=== PATIENT | male | born 1950 | race Caucasian/White ===

== ENCOUNTER → 2017-09-17 | Outpatient (CLI) | payer MEDICARE ==
[~2017-09-17] MED LIST: AMARYL4 MG PO; ASPIR 8181 M1 PO; ASPIR 8181 MG PO; COREG25 MG PO; LEVEMIR FL100 UNIT/2 SQ; LISINOPRIL10 MG PO; METFORMIN HCL500 MG PO; NEPHROCAPS SOFT1 CAP PO; NOVOLOG100 UNIT/1 INJECTION; PERCOCET PO; SIMVASTATIN40 MG PO; SODIUM BICARBO650 M3; TOUJEO SOL300 UNIT/1 SUBQ; VITAMIN B 12; VITAMIN D 5050000 I1
[2017-09-17 09:45] VITALS: BP 155/72
--- NOTE | 2017-09-17 09:58 | NUR ---
ARRIVED AMBULATORY. MADE SELF COMFORTABLE IN RECLINER. LABS DRAWN AND RESULTS EVALUATED. HGB NOTED AT 11.5 PER STANDING ORDER OF TITRATION TODAY'S DOSE IS HELD AND NOT GIVEN. PT UPDATED, VOICED UNDERSTANDING AND AGREED. DENIES QUESTIONS OR NEEDS AT DISCHAARGE.
== END ==
LOC: M.INFUS 01:44
DX: N18.4 Chronic kidney disease, stage 4 (severe) (principal); D63.1 Anemia in chronic kidney disease

== ENCOUNTER → 2017-10-15 | Outpatient (CLI) | payer OTHER ==
[2017-10-15 08:30] VITALS: BP 112/54
--- NOTE | 2017-10-15 10:23 | NUR ---
ARRIVED AMBULATORY. MADE SELF COMFORTABLE IN RECLINER. MONTHLY LABS REVIEWED AND PER STANDING ORDER DOSE OF PROCRIT TO STAY THE SAME FOR THIS INJECTION. INJECTION COMPLETED AND TOLERATED WELL. DENIES ADVERSE REACTION TO MULTIPLE PRIOR INJECTIONS OF SAME. DENIES QUESTIONS OR NEEDS AT DISCHARGE.
== END ==
LOC: M.INFUS 08:12
DX: N18.4 Chronic kidney disease, stage 4 (severe) (principal); D63.1 Anemia in chronic kidney disease

== ENCOUNTER → 2017-10-29 | Outpatient (CLI) | payer OTHER ==
[2017-10-29 11:16] LABS: HEMATOCRIT 34.1 % (42.0-52.0); HEMOGLOBIN 11.6 gm/dL (14.0-18.0)
--- NOTE | 2017-10-29 12:20 | NUR ---
ARRIVED AMBULATORY WITH SON, MADE SELF COMFORTABLE. LABS DRAWN PER ORDER. LAB RESULTS EVALUATED AND PT DOES NOT MEET CRITERIA FOR PROCRIT INJECTION TODAY BASED ON STANDING ORDER. HGB NOTED AT 11.6. PT UPDATED. VOCIED UNDERSTANDING AND AGREED. DENEIS QUESTIONS OR NEEDS AT DISCHARGE.
== END ==
LOC: M.INFUS 04:46
PROVIDERS: Internal Medicine Nephrology
DX: N18.4 Chronic kidney disease, stage 4 (severe) (principal); D63.1 Anemia in chronic kidney disease

== ENCOUNTER → 2017-11-12 | Outpatient (CLI) | payer OTHER ==
--- NOTE | 2017-11-12 10:00 | NUR ---
ARRIVED AMBULATROY. MADE SELF COMFORTABLE IN RECLINER. LABS DRAWN PER ORDER. HGB NOTED TO BE 12.2 PER STANDNG ORDER NO PROCRIT TO BE GIVEN TOADY. PT UPDATED. VOICED UNDERSTANDING AND AGREED. DENIES NEEDS AT DISCHARGE.
== END ==
LOC: M.INFUS 05:56
DX: N18.4 Chronic kidney disease, stage 4 (severe) (principal); D63.1 Anemia in chronic kidney disease

== ENCOUNTER → 2017-11-26 | Outpatient (CLI) | payer OTHER ==
--- NOTE | 2017-11-26 15:33 | NUR ---
ARRIVED AMBULATORY. HGB DRAWN AND RESULTS NOTED TO BE TO HIGH FOR INJECTION OF PROCRIT PER STANDING ORDER. PT UPDATED. VOICED UNDERSTANDING AND AGREED. DENIES NEEDS AT DISCHARGE.
== END ==
LOC: M.INFUS 05:41
DX: N18.4 Chronic kidney disease, stage 4 (severe) (principal); D63.1 Anemia in chronic kidney disease

== ENCOUNTER → 2017-12-13 | Outpatient (CLI) | payer OTHER ==
--- NOTE | 2017-12-13 09:27 | NUR ---
PT ARRIVED UNEXPECTEDLY AT 0855 THIS AM. HE HAD FORGOT ABOUT HIS WEDNESDAY APPT. GOT HIM REGISTERED AND HGB DRAWN. IT CAME BACK AT 11.0, WHICH WAS BORDERLINE FOR GETTING A SHOT OF PROCRIT. LEFT THE CHOICE UP TO THE PT. AND HE OPTED FOR NO SHOT. PT DC'ED HOME AT THIS TIME.
== END ==
LOC: M.INFUS 09:00
DX: N18.4 Chronic kidney disease, stage 4 (severe) (principal); D63.1 Anemia in chronic kidney disease

== ENCOUNTER → 2017-12-24 | Outpatient (CLI) | payer OTHER ==
--- NOTE | 2017-12-24 10:15 | NUR ---
ARRIVED AMBULATORY. MADE SELF COMFORTABLE IN RECLINER. LABS DRAWN AND RESULTS EVALUATED. PER STANDING ORDER NO INJECTION NEEDED AT THIS TIME. PT UPDATED AND AGREED. DENIES QUESTIONS OR NEEDS AT DISHCARGE.
== END ==
LOC: M.INFUS 01:33
DX: N18.4 Chronic kidney disease, stage 4 (severe) (principal); D63.1 Anemia in chronic kidney disease

== ENCOUNTER → 2018-01-07 | Outpatient (CLI) | payer OTHER ==
[2018-01-07 09:25] LABS: ABSOLUTE BASOPHILS 0.1 thou/uL (0.0-0.2); ABSOLUTE EOSINOPHILS 0.3 thou/uL (0.0-0.7); ABSOLUTE LYMPHOCYTES 2.1 thou/uL (0.8-5.3); ABSOLUTE MONOCYTES 0.4 thou/uL (0.0-1.2); ABSOLUTE NEUTROPHILS 4.8 thou/uL (1.6-8.1); EOSINOPHILS 4.2 %; HEMOGLOBIN 10.8 gm/dL (14.0-18.0); MCH 31.6 pg (26.0-34.0); MCHC 34.8 g/dL (28.0-37.0); MONOCYTES 5.6 %; NUCLEATED RBCS 0 /100WBC; PLATELET COUNT* 213 thou/uL (150-400); POLYS 62.2 %; RBC 3.41 mil/uL (4.50-6.00); RDW-CV 13.2 % (10.5-14.5); WBC 7.6 thou/uL (4.0-11.0)
[2018-01-07 09:42] LABS: ALBUMIN 3.3 g/dL (3.4-5.0); CALCIUM 8.5 mg/dL (8.5-10.1); CREATININE 3.1 mg/dL (0.6-1.3); PHOSPHORUS* 5.3 mg/dL (2.5-4.9); POTASSIUM 4.2 mmol/L (3.5-5.1)
[2018-01-07 09:44] VITALS: BP 121/52
--- NOTE | 2018-01-07 10:06 | NUR ---
Pt arrived at 0900 and ambulated to pre-op area for injection and lab draw. Reviewed meds and medical history and no changes or updates needed. Pt had lab drawn at 0915. Results at 0933 showed HGB at 10.8. INjection of Procrit 6,000units was done at 0952 in 1ml each back of arm SubQ. Pt tolerated injecions well but stated that medication does burn some with injection. Pt ambulated out for discharge at 1000.
[2018-01-07 18:06] LABS: eGFR IF AFRICAN AMERICAN 25 (>59)
[2018-01-07 22:11] LABS: PARATHYROID HORMONE 159 pg/mL (15-65)
== END ==
LOC: M.INFUS 02:07
PROVIDERS: Internal Medicine Nephrology
DX: N18.4 Chronic kidney disease, stage 4 (severe) (principal); D63.1 Anemia in chronic kidney disease

== ENCOUNTER 2018-01-11 14:43 | Emergency (ER) | payer OTHER ==
[~2018-01-11] VITALS: Ht 177.8 cm; Wt 88.7 kg
[~2018-01-11 14:43] MED LIST changes: -ASPIR 8181 MG PO; -NOVOLOG100 UNIT/1 INJECTION; -TOUJEO SOL300 UNIT/1 SUBQ
[2018-01-11 15:09] LABS: ABSOLUTE BASOPHILS 0.1 thou/uL (0.0-0.2); ABSOLUTE EOSINOPHILS 0.3 thou/uL (0.0-0.7); ABSOLUTE LYMPHOCYTES 2.1 thou/uL (0.8-5.3); ABSOLUTE MONOCYTES 0.4 thou/uL (0.0-1.2); ABSOLUTE NEUTROPHILS 5.1 thou/uL (1.6-8.1); BASOPHILS 1.1 %; EOSINOPHILS 4.1 %; HEMOGLOBIN 10.3 gm/dL (14.0-18.0); MCH 32.6 pg (26.0-34.0); MCHC 35.5 g/dL (28.0-37.0); MCV 91.9 fL (80.0-100.0); MONOCYTES 5.5 %; MPV 7.3 fl. (7.2-11.1); NUCLEATED RBCS 0 /100WBC; PLATELET COUNT* 217 thou/uL (150-400); POLYS 63.3 %; RBC 3.15 mil/uL (4.50-6.00); RDW-CV 13.4 % (10.5-14.5); WBC 8.1 thou/uL (4.0-11.0)
[2018-01-11 15:13] LABS: CALCIUM 8.1 mg/dL (8.5-10.1); CREATININE 3.4 mg/dL (0.6-1.3); POTASSIUM 4.1 mmol/L (3.5-5.1)
[2018-01-11 15:15] LABS: APTT 24.1 Seconds (25.0-31.3); INR 1.1; PROTIME 10.3 Seconds (9.20-11.50)
[2018-01-11 15:24] LABS: ALBUMIN 3.1 g/dL (3.4-5.0); TOTAL BILIRUBIN 0.3 mg/dL (<0.1-1.0); TOTAL PROTEIN 6.8 g/dL (6.4-8.2)
[2018-01-11 15:44] LABS: URINE BILIRUBIN NEGATIVE (Negative); URINE BLOOD TRACE (Negative); URINE CLARITY CLEAR; URINE COLOR YELLOW; URINE GLUCOSE-RANDOM 3+ (Negative); URINE KETONES NEGATIVE (Negative); URINE LEUKOCYTES-REFLEX NEGATIVE (Negative); URINE NITRITE-REFLEX NEGATIVE (Negative); URINE PROTEIN 2+ (Negative); URINE SPECIFIC GRAVITY 1.015 (1.005-1.030); URINE UROBILINOGEN 0.2 E.U./dl (0.2-1.0)
[2018-01-11 15:55] LABS: HYALINE CASTS 4-10 Moderate /LPF (None Seen)
[2018-01-11 15:56] LABS: BACTERIA-REFLEX None Seen /HPF (None Seen); CRYSTALS None Seen /LPF (None Seen); MUCUS None Seen strn/LPF (None Seen); SQUAMOUS NONE SEEN /LPF (0-3); URINE RBC 0-2 Rare /HPF (0-2); URINE WBC-REFLEX None Seen /HPF (0-5)
--- NOTE | 2018-01-11 16:29 | EKG ---
[place] [address] ELECTROCARDIOGRAM REPORT Name: BRITT GARVEY Room: [facility]#: [id number] Admission: 01/11/18 Attend Phys: Discharge: Date of : 54 Report #: [id number] THIS REPORT FOR: //name// [facility] ED Test Date: 2018-01-11 Test Time: 15:01:56 Pat Name: BRITT MARE Department: Room: Gender: Search Engine Marketing Manager: Talia [place] : 1950 Requested By: Vipin Huertas Order Number: [id number] MD: Marlon Taylor Measurements Intervals [place] Rate: 65 P: 50 [place]: 156 QRS: 68 QRSD: 126 T: 206 QT: 451 QTc: 469 Interpretive Statements Sinus rhythm Nonspecific intraventricular conduction delay Repol abnrm suggests ischemia, diffuse leads Compared to ECG 05/05/2013 11:01:28 Intraventricular conduction delay now present Fusion complex(es) no longer present Ventricular premature complex(es) no longer present Possible ischemia still present Electronically Signed On 01-11-2018 16:29:49 CDT by Marlon Taylor [email or web address] <ELECTRONICALLY SIGNED> By: Marlon Taylor MD, FAC 01/11/18 1629 1501 1501 Marlon Taylor MD, [facility] /EPI
[2018-01-11 17:30] VITALS: BP 176/65
[2018-02-11] MEDS ORDERED: ASPIR 8181 MG PO (16:27)
[2018-02-11] MEDS ORDERED: NOVOLOG100 UNIT/1 INJECTION (16:28)
[2018-02-14] MEDS ORDERED: TOUJEO SOL300 UNIT/1 SUBQ (12:00)
== END 2018-01-11 17:31 | disposition home or self-care (01) ==
LOC: M.ERS 14:43
PROVIDERS: Family Medicine
DX: E11.65 Type 2 diabetes mellitus with hyperglycemia (principal); E78.00 Pure hypercholesterolemia, unspecified; F17.210 Nicotine dependence, cigarettes, uncomplicated; Z86.73 Personal history of transient ischemic attack (TIA), and cerebral infarction without residual deficits; Z86.2 Personal history of diseases of the blood and blood-forming organs and certain disorders involving the immune mechanism; Z88.7 Allergy status to serum and vaccine

== ENCOUNTER → 2018-01-21 | Outpatient (CLI) | payer OTHER ==
[~2018-01-21] MED LIST changes: +ASPIR 8181 MG PO; +NOVOLOG100 UNIT/1 INJECTION; +TOUJEO SOL300 UNIT/1 SUBQ
--- NOTE | 2018-01-21 09:45 | NUR ---
ARRIVED AMBULATORY, MADE SLEF COMFORTABLE IN RECLINER. RESENT LABS REVIEWED. CRITERIA MET FOR PROCRIT INEJCTION TODAY. INJECTION COMPLETED AND TOLERATED WELL. DENIES NEEDS AT DISCHARGE.
== END ==
LOC: M.INFUS 01:31
DX: N18.4 Chronic kidney disease, stage 4 (severe) (principal); D63.1 Anemia in chronic kidney disease

== ENCOUNTER → 2018-02-04 | Outpatient (CLI) | payer OTHER ==
[2018-02-04 09:35] LABS: CHOLESTEROL 149 mg/dL (<200); HDL CHOLESTEROL 37 mg/dL (>40); LDL CHOLESTEROL 79 mg/dL (<100); TRIGLYCERIDE 168 mg/dL (<150); VLDL 34 mg/dL (<40)
[2018-02-04 09:36] LABS: SERUM ASSESSMENT Clear
== END ==
LOC: M.INFUS 01:35
PROVIDERS: Internal Medicine Nephrology
DX: N18.4 Chronic kidney disease, stage 4 (severe) (principal); D63.1 Anemia in chronic kidney disease

== ENCOUNTER → 2018-02-14 | Outpatient (CLI) | payer OTHER ==
[~2018-02-14] VITALS: Ht 177.8 cm; Wt 91.2 kg
[2018-02-14 11:10] LABS: HEMATOCRIT 33.3 % (42.0-52.0); HEMOGLOBIN 11.4 gm/dL (14.0-18.0); MCH 31.7 pg (26.0-34.0); MCHC 34.2 g/dL (28.0-37.0); MCV 92.6 fL (80.0-100.0); MPV 7.3 fl. (7.2-11.1); RBC 3.6 mil/uL (4.50-6.00); RDW-CV 13.5 % (10.5-14.5); WBC 9.9 thou/uL (4.0-11.0)
[2018-02-14 11:24] LABS: APTT 24.3 Seconds (25.0-31.3); INR 1.1; PROTIME 10.3 Seconds (9.20-11.50)
[2018-02-14 11:27] LABS: ANION GAP 16 mmol/L (7-16); BUN 63 mg/dL (7-18); CALCIUM 8.2 mg/dL (8.5-10.1); CHLORIDE 104 mmol/L (98-107); CO2 19 mmol/L (21-32); CREATININE 4.1 mg/dL (0.6-1.3); GLUCOSE 106 mg/dL (70-99); POTASSIUM 3.7 mmol/L (3.5-5.1); SODIUM 139 mmol/L (136-145)
[2018-02-14 11:31] LABS: ALBUMIN 3.5 g/dL (3.4-5.0); ALKALINE PHOSPHATASE 73 U/L (46-116); CHOLESTEROL 152 mg/dL (<200); HDL CHOLESTEROL 34 mg/dL (>40); LDL CHOLESTEROL 84 mg/dL (<100); SGOT 16 U/L (15-37); SGPT 29 U/L (30-65); TC:HDL 4.5 Ratio (Not establshd); TOTAL BILIRUBIN 0.2 mg/dL (<0.1-1.0); TOTAL PROTEIN 7.9 g/dL (6.4-8.2); TRIGLYCERIDE 170 mg/dL (<150); VLDL 34 mg/dL (<40)
[2018-02-14 11:32] LABS: SERUM ASSESSMENT Clear
[2018-02-14 11:40] VITALS: BP 176/69
--- NOTE | 2018-02-14 14:36 | EKG ---
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29 : 1950 Requested By: Salvador Brown Order Number: [id number] Lukas MD: Salvador Brown Measurements Intervals [place] Rate: 59 P: 55 [place]: 176 QRS: 62 QRSD: 128 T: 193 QT: 496 QTc: 492 Interpretive Statements Sinus rhythm LVH with secondary repolarization abnormality Borderline prolonged QT interval Compared to ECG 01/11/2018 15:01:56 Left ventricular hypertrophy now present Electronically Signed On 02-14-2018 14:35:58 CDT by Salvador Brown [email or web address] <ELECTRONICALLY SIGNED> By: Salvador Brown MD, [facility] 02/14/18 1435 1124 [id number] Salvador Brown MD, FACC /EPI
== END | disposition home or self-care (01) ==
LOC: M.CL 10:38
PROVIDERS: Internal Medicine
DX: R94.39 Abnormal result of other cardiovascular function study (principal); Z53.8 Procedure and treatment not carried out for other reasons; E78.00 Pure hypercholesterolemia, unspecified; E11.22 Type 2 diabetes mellitus with diabetic chronic kidney disease; D63.1 Anemia in chronic kidney disease; N18.9 Chronic kidney disease, unspecified; F17.210 Nicotine dependence, cigarettes, uncomplicated; Z86.73 Personal history of transient ischemic attack (TIA), and cerebral infarction without residual deficits; Z98.890 Other specified postprocedural states; Z79.899 Other long term (current) drug therapy

== ENCOUNTER → 2018-02-18 | Outpatient (CLI) | payer OTHER ==
[2018-02-18 08:59] VITALS: BP 114/47
[2018-02-18 09:44] LABS: HEMATOCRIT 30.3 % (42.0-52.0); HEMOGLOBIN 10.4 gm/dL (14.0-18.0); MCH 31.8 pg (26.0-34.0); MCHC 34.3 g/dL (28.0-37.0); MCV 92.6 fL (80.0-100.0); MPV 7.4 fl. (7.2-11.1); RBC 3.27 mil/uL (4.50-6.00); RDW-CV 13.7 % (10.5-14.5); WBC 7.6 thou/uL (4.0-11.0)
--- NOTE | 2018-02-18 10:13 | NUR ---
PT RECEIVED PROCRIT INJECTION TO LEFT UPPER ARM WITHOUT ANY ADVERSE REACTION. REQUESTED NO BANDAID. NO OOZING, BLEEDING, BRUISING NOTED. DISMISSED HOME IN GOOD CONDITION VIA STEADY GAIT.
== END ==
LOC: M.INFUS 01:17
PROVIDERS: Internal Medicine Nephrology
DX: N18.4 Chronic kidney disease, stage 4 (severe) (principal); D63.1 Anemia in chronic kidney disease

== ENCOUNTER → 2018-03-01 | Outpatient (CLI) | payer OTHER ==
[2018-03-01 10:59] LABS: CALCIUM 8.6 mg/dL (8.5-10.1); CREATININE 3.4 mg/dL (0.6-1.3); POTASSIUM 4.5 mmol/L (3.5-5.1)
== END ==
LOC: M.LAB 09:08
PROVIDERS: Internal Medicine Cardiovascular Disease
DX: N18.3 Chronic kidney disease, stage 3 (moderate) (principal)

== ENCOUNTER → 2018-03-04 | Outpatient (CLI) | payer OTHER ==
[2018-03-04 09:20] VITALS: BP 143/63
--- NOTE | 2018-03-04 09:45 | NUR ---
ARRIVED AMBULATORY. MADE SELF COMFORTABLE IN RECLINER. MONTHLY LABS REVIEWED. SAME DOSE OF PROCRIT TO BE GIVEN LAST TIME. 4,500 UNITS INJECTED TO RIGHT ARM. TOLERATED WELL. DENIES NEEDS AT DISCHARGE.
== END ==
LOC: M.INFUS 05:43
DX: N18.3 Chronic kidney disease, stage 3 (moderate) (principal); I12.9 Hypertensive chronic kidney disease with stage 1 through stage 4 chronic kidney disease, or unspecified chronic kidney disease; E11.22 Type 2 diabetes mellitus with diabetic chronic kidney disease; D63.1 Anemia in chronic kidney disease; Z86.73 Personal history of transient ischemic attack (TIA), and cerebral infarction without residual deficits

== ENCOUNTER → 2018-04-22 | Outpatient (CLI) | payer OTHER ==
[2018-04-22 10:30] VITALS: BP 132/54
--- NOTE | 2018-04-22 12:22 | NUR ---
ARRIVED AMBULATROY. MADE SELF COMFORTABLE IN RECLINER. MONTHLY HGB DRAWN AND PT HAD ADDITIONAL LAB ORDER FROM DR. MATHEWS. ALL DRAWN TODAY. LAB RESULTS EVALUATED AND CRITERIA MET FOR INJECTION OF PROCRIT TODAY. INJECTION OF 4,500 UNITS COMPLETED AND TOELRATED WELL. DENEIS QUESTIONS OR NEEDS AT DICHARGE.
== END ==
LOC: M.INFUS 08:51
DX: N18.4 Chronic kidney disease, stage 4 (severe) (principal); D63.1 Anemia in chronic kidney disease

== ENCOUNTER → 2018-05-06 | Outpatient (CLI) | payer OTHER ==
[2018-05-06 08:58] VITALS: BP 131/64
--- NOTE | 2018-05-06 10:00 | NUR ---
ARRIVED MAUBLATORY. LABS REVIEWED. PER STANDING ORDER. PROCRIT SAMAE DOSE OF 4,500 UNITTS CONTINUE. DENIES ADVERSE REACTION TO PRIOR INJECTION OF SAME. TOELRATED INJECTION WELL. DENIES NEEDS AT DISCHARGE.
== END ==
LOC: M.INFUS 01:43
DX: N18.4 Chronic kidney disease, stage 4 (severe) (principal); D63.1 Anemia in chronic kidney disease

== ENCOUNTER → 2018-05-20 | Outpatient (CLI) | payer OTHER ==
[2018-05-20 09:18] VITALS: BP 142/85
--- NOTE | 2018-05-20 11:40 | NUR ---
ARRIVED AMBULATORY. MADE SELF COMFORTABLE. MONTHLY HGB DRAWN PER STANDING ORDER. HGB NOTED AT 10.6 PER STANDING ORDER CONTINUE SAME DOSE OF PROCRIT LAST GIVED. 4,500 UNITS INJECTED AND TOERATED WELL. DENIES ANY ADVERSE REACTION TO PRIOR INJECTIONS OF SAME, QUESTIONS OR NEED AT DISCHARGE.
== END ==
LOC: M.INFUS 08:43
DX: N18.4 Chronic kidney disease, stage 4 (severe) (principal); D63.1 Anemia in chronic kidney disease

== ENCOUNTER → 2018-06-06 | Outpatient (CLI) | payer OTHER ==
[2018-06-06 14:15] VITALS: BP 145/78
[2018-06-06 14:17] LABS: ABSOLUTE BASOPHILS 0.1 thou/uL (0.0-0.2); ABSOLUTE EOSINOPHILS 0.4 thou/uL (0.0-0.7); ABSOLUTE LYMPHOCYTES 2.3 thou/uL (0.8-5.3); ABSOLUTE MONOCYTES 0.5 thou/uL (0.0-1.2); ABSOLUTE NEUTROPHILS 5.3 thou/uL (1.6-8.1); BASOPHILS 0.6 %; EOSINOPHILS 5.2 %; HEMATOCRIT 31.4 % (42.0-52.0); HEMOGLOBIN 10.8 gm/dL (14.0-18.0); LYMPHOCYTES 26.5 %; MCH 31.7 pg (26.0-34.0); MCHC 34.3 g/dL (28.0-37.0); MCV 92.3 fL (80.0-100.0); MONOCYTES 5.7 %; MPV 7.3 fl. (7.2-11.1); NUCLEATED RBCS 0 /100WBC; PLATELET COUNT* 213 thou/uL (150-400); RDW-CV 13.8 % (10.5-14.5); WBC 8.6 thou/uL (4.0-11.0)
--- NOTE | 2018-06-06 14:39 | NUR ---
ARRIVED AMBULATORY. HAD ADDITION LAB ORDER FROM DR. LOU. LABS DRAWN AND RESULTS EVALUATED. PT TO CONTINUE SAME DOSE OF PROCRIT OF 4,500 UNITS. INJECTION COMPLETED AND TOELRATED WELL. DENIES NEEDS AT DISCHARGE.
[2018-06-06 14:40] LABS: ALBUMIN 3.4 g/dL (3.4-5.0); CREATININE 4.1 mg/dL (0.6-1.3); POTASSIUM 4.9 mmol/L (3.5-5.1)
[2018-06-06 19:07] LABS: eGFR IF AFRICAN AMERICAN 19 (>59)
[2018-06-07 13:14] LABS: PARATHYROID HORMONE 218 pg/mL (15-65)
== END ==
LOC: M.INFUS 13:30
PROVIDERS: Internal Medicine Nephrology
DX: N18.4 Chronic kidney disease, stage 4 (severe) (principal); D63.1 Anemia in chronic kidney disease

== ENCOUNTER → 2018-07-01 | Outpatient (CLI) | payer OTHER ==
--- NOTE | 2018-07-01 09:37 | NUR ---
ARRIVED AMBULATORY. MADE SELF COMFORTABLE IN RECLINER. LABS DRAWN PER STANDING ORDER. LAB RESULTS EVALUATED AND PER CRITERIA NO PROCRIT INJECTION NEEDED. NC UPDATED. VOICED UNDERSTANDING AND AGREED NEXT APPOINTMENT SET FOR 2 WEEKS.
== END ==
LOC: M.INFUS 05:23
DX: N18.4 Chronic kidney disease, stage 4 (severe) (principal); D63.1 Anemia in chronic kidney disease

== ENCOUNTER → 2018-07-15 | Outpatient (CLI) | payer OTHER ==
--- NOTE | 2018-07-15 10:31 | NUR ---
ARRIVED AMBULATORY. LAST INJECTION HELD RELATED TO HGB. LABS DRAWN AND HGB NOTED TO BE STABLE AT 10.8 PT DENEIS BEING SYMPTOMATIC AND REQUEST TO HOLD INJECTION AGAIN TODAY AND RECHECK IN 2 WEEKS PER STANDING ORDER.
== END ==
LOC: M.INFUS 04:50
DX: N18.4 Chronic kidney disease, stage 4 (severe) (principal); D63.1 Anemia in chronic kidney disease

== ENCOUNTER → 2018-07-29 | Outpatient (CLI) | payer OTHER ==
--- NOTE | 2018-07-29 10:23 | NUR ---
ARRIVED AMBULATORY. MADE SELF COMFORTABLE IN RECLIENR. LABS DRAWN AND RESULTS EVALUATED. PER TITRATION ON STANDING ORDER HOLD DOSE FOR TODAY. PT UPDATED. VOICED UNDERSTANDING AND AGREED.
== END ==
LOC: M.INFUS 04:36
DX: N18.4 Chronic kidney disease, stage 4 (severe) (principal); D63.1 Anemia in chronic kidney disease

== ENCOUNTER → 2018-08-26 | Outpatient (CLI) | payer OTHER ==
[2018-08-26 10:24] LABS: ABSOLUTE EOSINOPHILS 0.4 thou/uL (0.0-0.7); ABSOLUTE LYMPHOCYTES 2.8 thou/uL (0.8-5.3); ABSOLUTE MONOCYTES 0.5 thou/uL (0.0-1.2); ABSOLUTE NEUTROPHILS 5.1 thou/uL (1.6-8.1); BASOPHILS 0.4 %; EOSINOPHILS 4.3 %; HEMATOCRIT 29.6 % (42.0-52.0); HEMOGLOBIN 10.2 gm/dL (14.0-18.0); LYMPHOCYTES 31.8 %; MCH 31.9 pg (26.0-34.0); MCHC 34.3 g/dL (28.0-37.0); MCV 92.9 fL (80.0-100.0); MONOCYTES 6.2 %; MPV 7.6 fl. (7.2-11.1); NUCLEATED RBCS 0 /100WBC; PLATELET COUNT* 228 thou/uL (150-400); POLYS 57.3 %; RBC 3.19 mil/uL (4.50-6.00); RDW-CV 13.2 % (10.5-14.5); WBC 8.9 thou/uL (4.0-11.0)
[2018-08-26 10:30] VITALS: BP 150/62
[2018-08-26 10:40] LABS: ALBUMIN 3.3 g/dL (3.4-5.0); CALCIUM 8.2 mg/dL (8.5-10.1); PHOSPHORUS* 5.1 mg/dL (2.5-4.9); POTASSIUM 4.2 mmol/L (3.5-5.1)
--- NOTE | 2018-08-26 10:48 | NUR ---
ARRIVED AMBULATORY MADE SELF COMFORTABLE. PRE INJECTION LABS DRAWN AND RESULTS EVALUATED. PER STANDING ORDER CONTINUE SAME DOSE LAST GIVEN. 4,500 UNITS. INJECTION COMPLETED AND TOLETAED WELL. DENIES QUESTIONS OR NEEDS AT DISCHARGE.
[2018-08-26 19:11] LABS: eGFR IF AFRICAN AMERICAN 19 (>59)
[2018-08-27 14:09] LABS: PARATHYROID HORMONE 229 pg/mL (15-65)
== END ==
LOC: M.INFUS 04:41
PROVIDERS: Internal Medicine Nephrology
DX: E11.22 Type 2 diabetes mellitus with diabetic chronic kidney disease (principal); N18.4 Chronic kidney disease, stage 4 (severe); D63.1 Anemia in chronic kidney disease

== ENCOUNTER → 2018-09-09 | Outpatient (CLI) | payer OTHER ==
[2018-09-09 09:00] VITALS: BP 124/57
== END ==
LOC: M.INFUS 04:31
DX: E11.22 Type 2 diabetes mellitus with diabetic chronic kidney disease (principal); N18.4 Chronic kidney disease, stage 4 (severe); D63.1 Anemia in chronic kidney disease

== ENCOUNTER → 2018-09-26 | Outpatient (CLI) | payer OTHER ==
[2018-09-26 09:26] LABS: ABSOLUTE BASOPHILS 0.1 thou/uL (0.0-0.2); ABSOLUTE EOSINOPHILS 0.4 thou/uL (0.0-0.7); ABSOLUTE LYMPHOCYTES 2.1 thou/uL (0.8-5.3); ABSOLUTE MONOCYTES 0.5 thou/uL (0.0-1.2); ABSOLUTE NEUTROPHILS 5.6 thou/uL (1.6-8.1); BASOPHILS 0.8 %; EOSINOPHILS 4.4 %; HEMATOCRIT 33.9 % (42.0-52.0); HEMOGLOBIN 11.4 gm/dL (14.0-18.0); LYMPHOCYTES 24.1 %; MCH 31.6 pg (26.0-34.0); MCHC 33.6 g/dL (28.0-37.0); MCV 94.1 fL (80.0-100.0); MPV 7.1 fl. (7.2-11.1); NUCLEATED RBCS 0 /100WBC; PLATELET COUNT* 237 thou/uL (150-400); POLYS 64.7 %; RDW-CV 13.8 % (10.5-14.5); WBC 8.7 thou/uL (4.0-11.0)
[2018-09-26 09:35] LABS: ALBUMIN 3.4 g/dL (3.4-5.0); CALCIUM 8.3 mg/dL (8.5-10.1); CREATININE 4.1 mg/dL (0.6-1.3); PHOSPHORUS* 5.1 mg/dL (2.5-4.9); POTASSIUM 4.3 mmol/L (3.5-5.1)
--- NOTE | 2018-09-26 09:38 | NUR ---
ARRIVED AMBULATORY. MADE SLEF COMFORTABLE IN RECLINER. LABS DRAWN PER ORDER. RESULTS EVALUATED. PER STANDING ORDER NO PROCRIT NEEDED. PT UPDATED. VOICED UNDERSTANDING AND AGREED STATED FEELA GOOD. DENEIS NEEDS AT DISHCARGE.
== END ==
LOC: M.INFUS 09:04
PROVIDERS: Internal Medicine Nephrology
DX: N18.4 Chronic kidney disease, stage 4 (severe) (principal); D63.1 Anemia in chronic kidney disease

== ENCOUNTER → 2018-10-07 | Outpatient (CLI) | payer OTHER ==
[2018-10-07 08:48] VITALS: BP 162/73
--- NOTE | 2018-10-07 08:48 | NUR ---
ARRIVED AMBULATORY. MADE SELF COMFORTABLE IN RECLINER. LABS DRAWN PER ORDER (H/H). RESULTS ELEVATED-HGB AT 11.3. PER STANDING ORDER, NO PROCRIT NEEDED. PT UPDATED ON PLAN OF CARE. VOICED UNDERSTANDING. DENIES NEEDS AT DISCHARGE.
== END ==
LOC: M.INFUS 04:33
DX: N18.4 Chronic kidney disease, stage 4 (severe) (principal); D63.1 Anemia in chronic kidney disease

== ENCOUNTER → 2018-10-21 | Outpatient (CLI) | payer OTHER ==
[2018-10-21 09:14] LABS: ABSOLUTE EOSINOPHILS 0.4 thou/uL (0.0-0.7); ABSOLUTE LYMPHOCYTES 2.3 thou/uL (0.8-5.3); ABSOLUTE MONOCYTES 0.5 thou/uL (0.0-1.2); ABSOLUTE NEUTROPHILS 5.3 thou/uL (1.6-8.1); BASOPHILS 0.4 %; EOSINOPHILS 4.7 %; HEMATOCRIT 32.7 % (42.0-52.0); HEMOGLOBIN 11.2 gm/dL (14.0-18.0); LYMPHOCYTES 26.9 %; MCH 31.9 pg (26.0-34.0); MCHC 34.2 g/dL (28.0-37.0); MCV 93.4 fL (80.0-100.0); MPV 7.4 fl. (7.2-11.1); NUCLEATED RBCS 0 /100WBC; PLATELET COUNT* 228 thou/uL (150-400); RDW-CV 13.4 % (10.5-14.5); WBC 8.5 thou/uL (4.0-11.0)
[2018-10-21 09:33] LABS: ALBUMIN 3.3 g/dL (3.4-5.0); CALCIUM 8.7 mg/dL (8.5-10.1); CREATININE 3.9 mg/dL (0.6-1.3); PHOSPHORUS* 5.7 mg/dL (2.5-4.9); POTASSIUM 4.6 mmol/L (3.5-5.1)
[2018-10-21 09:34] LABS: CALCIUM 8.5 mg/dL (8.5-10.1); CREATININE 3.9 mg/dL (0.6-1.3); PHOSPHORUS* 5.9 mg/dL (2.5-4.9)
--- NOTE | 2018-10-21 11:00 | NUR ---
ARRIVED AMUBLATORY WITH NEW LAB ORDER. LABS DRAWN AND RESULTS EVALUATED. HGB ELEVATED AND NO NEED FOR PROCRIT INJECTION TODAY. PT UPDATED. VOICED UNDERSTANDING AND AGREED. CALL PLACED TO DR. QUINN AND OFFICE UPDATED. NO NEW ORDERS.
== END ==
LOC: M.INFUS 08:40
PROVIDERS: Internal Medicine Nephrology
DX: N18.4 Chronic kidney disease, stage 4 (severe) (principal); D63.1 Anemia in chronic kidney disease

== ENCOUNTER → 2018-11-18 | Outpatient (CLI) | payer OTHER ==
[2018-11-18 10:25] LABS: HEMATOCRIT 29.1 % (42.0-52.0)
--- NOTE | 2018-11-18 11:27 | NUR ---
ARRIVED AMBULATORY. MADE SELF COMFORTABLE. LABS DRAWN PER ORDER. LAB RESULTS EVALUATED AND CRITERIA MET TO CONTINUE SAME DOSE OF PROCRIT LAST GIVE OF 4,500 UNITS. INJECTION COMPLETED AND TOLERATED WELL. DENIES NEEDS AT DISCHARGE.
== END ==
LOC: M.INFUS 11-11 09:30
PROVIDERS: Internal Medicine Nephrology
DX: N18.4 Chronic kidney disease, stage 4 (severe) (principal); D63.1 Anemia in chronic kidney disease

== ENCOUNTER → 2018-12-01 | Outpatient (CLI) | payer OTHER | LOC: M.INFUS 11-25 09:30 | DX: N18.4 Chronic kidney disease, stage 4 (severe) (principal); D63.1 Anemia in chronic kidney disease ==

== ENCOUNTER → 2018-12-15 | Outpatient (CLI) | payer OTHER ==
--- NOTE | 2018-12-15 14:26 | NUR ---
ARRIOVED AMBULATORY. MADE SELF COMFORTABLE IN RELCINER. LABS DRAWN AND EVALUATED AND CRITERIA MET FOR PROCRIT INJECTION. INJECTION COMPLETED AND TOELRATED WELL. DENIES QUESTIONS OR NEEDS AT DISCHARGE.
== END ==
LOC: M.INFUS 12-09 09:30
DX: N18.4 Chronic kidney disease, stage 4 (severe) (principal); D63.1 Anemia in chronic kidney disease

== ENCOUNTER → 2018-12-30 | Outpatient (CLI) | payer OTHER ==
[2018-12-30 09:15] VITALS: BP 132/74
[2018-12-30 09:17] LABS: HEMOGLOBIN 10.1 gm/dL (14.0-18.0); MCV 91.9 fL (80.0-100.0); NUCLEATED RBCS 0 /100WBC; WBC 7.9 thou/uL (4.0-11.0)
[2018-12-30 09:19] LABS: ABSOLUTE EOSINOPHILS 0.4 thou/uL (0.0-0.7); ABSOLUTE MONOCYTES 0.5 thou/uL (0.0-1.2); BASOPHILS 0.5 %; EOSINOPHILS 4.6 %; HEMATOCRIT 29.7 % (42.0-52.0); LYMPHOCYTES 25.5 %; MCH 31.2 pg (26.0-34.0); MONOCYTES 6.5 %; MPV 7.5 fl. (7.2-11.1); PLATELET COUNT* 188 thou/uL (150-400); POLYS 62.9 %; RBC 3.23 mil/uL (4.50-6.00); RDW-CV 13.6 % (10.5-14.5)
[2018-12-30 09:29] LABS: ALBUMIN 3.1 g/dL (3.4-5.0); CALCIUM 8.1 mg/dL (8.5-10.1); PHOSPHORUS* 5.2 mg/dL (2.5-4.9); POTASSIUM 4.1 mmol/L (3.5-5.1)
[2018-12-30 09:34] LABS: CALCIUM 7.9 mg/dL (8.5-10.1); CREATININE 4.1 mg/dL (0.6-1.3); PHOSPHORUS* 5.3 mg/dL (2.5-4.9)
== END ==
LOC: M.INFUS 04:20
PROVIDERS: Internal Medicine Nephrology
DX: N62 Hypertrophy of breast (principal); I12.9 Hypertensive chronic kidney disease with stage 1 through stage 4 chronic kidney disease, or unspecified chronic kidney disease; E11.22 Type 2 diabetes mellitus with diabetic chronic kidney disease; N18.4 Chronic kidney disease, stage 4 (severe); D63.1 Anemia in chronic kidney disease; I25.10 Atherosclerotic heart disease of native coronary artery without angina pectoris; I67.9 Cerebrovascular disease, unspecified; J44.9 Chronic obstructive pulmonary disease, unspecified; G89.29 Other chronic pain; M54.5 Low back pain; E55.9 Vitamin D deficiency, unspecified; E11.49 Type 2 diabetes mellitus with other diabetic neurological complication; E11.51 Type 2 diabetes mellitus with diabetic peripheral angiopathy without gangrene; F17.210 Nicotine dependence, cigarettes, uncomplicated; Z89.419 Acquired absence of unspecified great toe; Z68.29 Body mass index [BMI] 29.0-29.9, adult

== ENCOUNTER → 2019-01-13 | Outpatient (CLI) | payer OTHER ==
[2019-01-13 09:15] VITALS: BP 132/74
--- NOTE | 2019-01-13 10:32 | NUR ---
NO LABS NEEDED TODAY. BASED ON LABS NATHAN LAST VISIT PT NEEDS INJECTION OF SAME DOSE LAST GIVEN. INJECTION OF 4,500 UNITS TO RIGHT UPPER ARM COMPLETED AND TOLERATED WELL. DENIES NEEDS AT DISCHARGE.
== END ==
LOC: M.INFUS 05:07
DX: N18.4 Chronic kidney disease, stage 4 (severe) (principal); D63.1 Anemia in chronic kidney disease

== ENCOUNTER → 2019-01-27 | Outpatient (CLI) | payer OTHER ==
[2019-01-27 09:15] LABS: HEMATOCRIT 32.2 % (42.0-52.0); HEMOGLOBIN 10.9 gm/dL (14.0-18.0)
--- NOTE | 2019-01-27 09:25 | NUR ---
ARRIVED AMBULATORY. LABS DRAWN PER NEW STANDING ORDER. HGB RESULT NOTED TO BE 10.9 PT REFUSED INJECTION OF PROCRIT STATING "ITS NOT LOW AND I CANT TELL A DIFFERENCE ANYWAY." EDUCATIONOF MEDICATION COMPLETED. PT STATED HE WANTED TO HOLD OFF ON INJECTION UNTIL NEXT VISIT IN 2 WEEKS. DENIES QUESTIONS AT DISCHARGE.
[2019-01-27 09:31] LABS: CALCIUM 8.2 mg/dL (8.5-10.1); CREATININE 4.3 mg/dL (0.6-1.3); POTASSIUM 4.4 mmol/L (3.5-5.1)
== END ==
LOC: M.INFUS 04:40
PROVIDERS: Internal Medicine Nephrology
DX: N18.4 Chronic kidney disease, stage 4 (severe) (principal); D63.1 Anemia in chronic kidney disease

== ENCOUNTER → 2019-02-10 | Outpatient (CLI) | payer OTHER ==
[2019-02-10 09:00] VITALS: BP 142/78
== END ==
LOC: M.INFUS 05:04
DX: N18.4 Chronic kidney disease, stage 4 (severe) (principal); D63.1 Anemia in chronic kidney disease

== ENCOUNTER → 2019-02-24 | Outpatient (CLI) | payer OTHER ==
[2019-02-24 09:03] VITALS: BP 106/59
--- NOTE | 2019-02-24 09:13 | NUR ---
ARRIVED AMBULATORY. MADE SELF COMFORTABLE IN RECLINER. MONTHLY HGB DRAWN PER STANDING ORDER. RESULTED BACK AT 11.1 PER TITRATION ORDER NO PROCRIT INJECTION NEEDED TO DAY. PT UPDATED. VOICED UNDERSTANDING AND AGREED. DENIES QUESTIONS OR NEEDS AT DISCHARGE.
== END ==
LOC: M.INFUS 05:11
DX: N18.4 Chronic kidney disease, stage 4 (severe) (principal); D63.1 Anemia in chronic kidney disease

== ENCOUNTER → 2019-03-24 | Outpatient (CLI) | payer OTHER ==
[2019-03-24 08:55] VITALS: BP 162/76
[2019-03-24 09:53] LABS: ABSOLUTE BASOPHILS 0.1 thou/uL (0.0-0.2); ABSOLUTE EOSINOPHILS 0.4 thou/uL (0.0-0.7); ABSOLUTE LYMPHOCYTES 1.9 thou/uL (0.8-5.3); ABSOLUTE MONOCYTES 0.7 thou/uL (0.0-1.2); ABSOLUTE NEUTROPHILS 7.6 thou/uL (1.6-8.1); BASOPHILS 0.5 %; EOSINOPHILS 3.3 %; HEMATOCRIT 34.2 % (42.0-52.0); HEMOGLOBIN 11.8 gm/dL (14.0-18.0); LYMPHOCYTES 18.4 %; MCH 31.1 pg (26.0-34.0); MCHC 34.4 g/dL (28.0-37.0); MCV 90.5 fL (80.0-100.0); MONOCYTES 6.4 %; MPV 7.2 fl. (7.2-11.1); NUCLEATED RBCS 0 /100WBC; PLATELET COUNT* 260 thou/uL (150-400); POLYS 71.4 %; RBC 3.78 mil/uL (4.50-6.00); RDW-CV 13.6 % (10.5-14.5); WBC 10.6 thou/uL (4.0-11.0)
[2019-03-24 10:06] LABS: ALBUMIN 3.4 g/dL (3.4-5.0); CALCIUM 8.6 mg/dL (8.5-10.1); CREATININE 3.8 mg/dL (0.6-1.3); PHOSPHORUS* 5.7 mg/dL (2.5-4.9)
[2019-03-24 10:09] LABS: CALCIUM 8.4 mg/dL (8.5-10.1); CREATININE 3.9 mg/dL (0.6-1.3); PHOSPHORUS* 5.7 mg/dL (2.5-4.9)
== END ==
LOC: M.INFUS 04:57
PROVIDERS: Internal Medicine Nephrology
DX: N18.4 Chronic kidney disease, stage 4 (severe) (principal); D63.1 Anemia in chronic kidney disease

== ENCOUNTER → 2019-04-07 | Outpatient (CLI) | payer OTHER ==
[2019-04-07 09:08] VITALS: BP 132/70
--- NOTE | 2019-04-07 09:20 | NUR ---
ARRIVED AMBULATORY. LAST LAB REVIEWED AND HGB NOTED TO BE 10.6 PER TITRATION CONTINUE SAME DOSE. DENIES ADVERSE REACTION TO PRIOR INJECTIONS OR SAME. INJECTION COMPLETED AND TOERATED WELL. DENIES NEEDS AT DISCHARGE.
== END ==
LOC: M.INFUS 04:37
DX: N18.4 Chronic kidney disease, stage 4 (severe) (principal); D63.1 Anemia in chronic kidney disease

== ENCOUNTER → 2019-04-21 | Outpatient (CLI) | payer OTHER ==
--- NOTE | 2019-04-21 09:29 | NUR ---
ARRIVED AMBULATORY. MADE SELF COMFORTABLE IN RECLINER. LAB DRAWN AND RESULTS EVALUATED. HGB NOTED TO BE 11.9 PER STANDING ORDER INJECTION HELD. PT UPDATED. VOICED UNDERSTANDING AND AGREED.
== END ==
LOC: M.INFUS 04:08
DX: N18.4 Chronic kidney disease, stage 4 (severe) (principal); D63.1 Anemia in chronic kidney disease

== ENCOUNTER → 2019-05-19 | Outpatient (CLI) | payer OTHER ==
[2019-05-19 09:00] VITALS: BP 115/58
--- NOTE | 2019-05-19 09:34 | NUR ---
HGB= 11.2, PROCRIT HELD PER TITRATION ORDER. PATIENT DISCHARGED AMBULATORY WITH NO REPORTS OF PAIN OR COMPLAINTS OF DISHEALTH.
== END ==
LOC: M.INFUS 05:11
DX: N18.4 Chronic kidney disease, stage 4 (severe) (principal); D63.1 Anemia in chronic kidney disease

== ENCOUNTER → 2019-06-16 | Outpatient (CLI) | payer OTHER ==
--- NOTE | 2019-06-16 09:13 | NUR ---
ARRIVED AMBULATORY. MADE SELF COMFORTABLE IN RECLINER. LABS DRAWN FROM RIGHT AC BY RN. LAB RESULTS REVIEWED AND HGB NOTED TO BE 10.9 PER PT REQUEST INJECTION HELD AT THIS TIME. DENEIS NEEDS AT DISCHARGE.
== END ==
LOC: M.INFUS 05:05
DX: N18.4 Chronic kidney disease, stage 4 (severe) (principal); D63.1 Anemia in chronic kidney disease

== ENCOUNTER → 2019-07-14 | Outpatient (CLI) | payer OTHER ==
[2019-07-14 10:30] LABS: ABSOLUTE EOSINOPHILS 0.4 thou/uL (0.0-0.7); ABSOLUTE LYMPHOCYTES 2.2 thou/uL (0.8-5.3); ABSOLUTE MONOCYTES 0.5 thou/uL (0.0-1.2); BASOPHILS 0.4 %; HEMATOCRIT 31.3 % (42.0-52.0); LYMPHOCYTES 24.2 %; MCH 32.8 pg (26.0-34.0); MCV 93.7 fL (80.0-100.0); MONOCYTES 5.3 %; MPV 7.7 fl. (7.2-11.1); NUCLEATED RBCS 0 /100WBC; PLATELET COUNT* 229 thou/uL (150-400); POLYS 66.1 %; RBC 3.34 mil/uL (4.50-6.00); RDW-CV 13.5 % (10.5-14.5); WBC 9.1 thou/uL (4.0-11.0)
[2019-07-14 10:38] LABS: ALBUMIN 3.1 g/dL (3.4-5.0); CALCIUM 8.4 mg/dL (8.5-10.1); CREATININE 4.1 mg/dL (0.6-1.3); PHOSPHORUS* 5.8 mg/dL (2.5-4.9); POTASSIUM 4.4 mmol/L (3.5-5.1)
[2019-07-14 10:39] LABS: CALCIUM 8.5 mg/dL (8.5-10.1); CREATININE 4.3 mg/dL (0.6-1.3)
[2019-07-14 10:54] VITALS: BP 141/72
--- NOTE | 2019-07-14 11:19 | NUR ---
PATIENT ELECTED TO HAVE HIS PRE-PHYSICIAN VISIT LABS DRAWN. ORDERS OBTAINED FROM [facility] VIA FAX. HARD COPY IN CHART.
== END ==
LOC: M.INFUS 05:13
PROVIDERS: Internal Medicine Nephrology
DX: N18.4 Chronic kidney disease, stage 4 (severe) (principal); D63.1 Anemia in chronic kidney disease

== ENCOUNTER → 2019-08-11 | Outpatient (CLI) | payer OTHER ==
[2019-08-11 08:59] VITALS: BP 149/55
[2019-08-11 09:01] LABS: HEMATOCRIT 31.2 % (42.0-52.0); HEMOGLOBIN 10.7 gm/dL (14.0-18.0)
== END ==
LOC: M.INFUS 01:43
PROVIDERS: Internal Medicine Nephrology
DX: N18.4 Chronic kidney disease, stage 4 (severe) (principal); D63.1 Anemia in chronic kidney disease

== ENCOUNTER → 2019-08-25 | Outpatient (CLI) | payer OTHER ==
[2019-08-25 09:10] VITALS: BP 132/78
== END ==
LOC: M.INFUS 05:01
DX: N18.4 Chronic kidney disease, stage 4 (severe) (principal); D63.1 Anemia in chronic kidney disease

== ENCOUNTER → 2019-09-22 | Outpatient (CLI) | payer OTHER ==
[2019-09-22 09:00] VITALS: BP 150/82
[2019-09-22 10:10] VITALS: BP 156/78
== END ==
LOC: M.INFUS 05:17
DX: N18.4 Chronic kidney disease, stage 4 (severe) (principal); D63.1 Anemia in chronic kidney disease

== ENCOUNTER → 2019-10-06 | Outpatient (CLI) | payer OTHER ==
[2019-10-06 09:00] VITALS: BP 132/82
[2019-10-06 09:40] LABS: ABSOLUTE EOSINOPHILS 0.4 thou/uL (0.0-0.7); ABSOLUTE LYMPHOCYTES 2.6 thou/uL (0.8-5.3); ABSOLUTE MONOCYTES 0.7 thou/uL (0.0-1.2); ABSOLUTE NEUTROPHILS 6.6 thou/uL (1.6-8.1); BASOPHILS 0.5 %; EOSINOPHILS 3.8 %; HEMATOCRIT 30.3 % (42.0-52.0); HEMOGLOBIN 10.3 gm/dL (14.0-18.0); LYMPHOCYTES 25.4 %; MCH 32.1 pg (26.0-34.0); MCHC 33.9 g/dL (28.0-37.0); MCV 94.5 fL (80.0-100.0); MONOCYTES 6.9 %; MPV 7.5 fl. (7.2-11.1); NUCLEATED RBCS 0 /100WBC; PLATELET COUNT* 285 thou/uL (150-400); POLYS 63.4 %; RDW-CV 13.2 % (10.5-14.5); WBC 10.4 thou/uL (4.0-11.0)
--- NOTE | 2019-10-06 09:49 | NUR ---
ARRIVED AMBULATORY. MADE SELF COMFORTABLE IN RECLINER. PT PRESENT WITH ADDITIONAL LABS FROM DR. JAY. LABS DRAWN BY RN LEFT AC AND URINE SAMPLE COLLECTED. PER LAB RESULTS PT IN NEED OF INJECTION TODAY. INJECTION COMPLETED AND TOLERATED WELL. KENYA QUESTIONS OR NEEDS AT DISCHARGE.
[2019-10-06 09:52] LABS: ALBUMIN 3.2 g/dL (3.4-5.0); CALCIUM 8.8 mg/dL (8.5-10.1); CREATININE 4.8 mg/dL (0.6-1.3); PHOSPHORUS* 6.1 mg/dL (2.5-4.9); POTASSIUM 4.6 mmol/L (3.5-5.1)
[2019-10-06 09:57] LABS: CALCIUM 8.6 mg/dL (8.5-10.1); CREATININE 4.9 mg/dL (0.6-1.3); PHOSPHORUS* 6.2 mg/dL (2.5-4.9)
--- NOTE | 2019-10-06 11:26 | NUR ---
ELEVATED LAB RESULTS CALLED TO DR. LOU'S OFFICE. SPOKE WITH KURT. LAB RESUTLS FAXED WELL
== END ==
LOC: M.INFUS 04:50
PROVIDERS: Internal Medicine Nephrology
DX: N18.4 Chronic kidney disease, stage 4 (severe) (principal); D63.1 Anemia in chronic kidney disease

== ENCOUNTER → 2019-10-19 | Outpatient (CLI) | payer OTHER ==
[2019-10-19 12:27] LABS: CREATININE 5.4 mg/dL (0.6-1.3)
== END ==
LOC: M.LAB 11:15 → M.CT 12:30
PROVIDERS: Nurse Practitioner Family
DX: R10.84 Generalized abdominal pain (principal); Z79.899 Other long term (current) drug therapy

== ENCOUNTER → 2019-10-20 | Outpatient (CLI) | payer OTHER ==
[2019-10-20 08:55] VITALS: BP 110/55
[2019-10-20 09:52] LABS: ABSOLUTE BASOPHILS 0.1 thou/uL (0.0-0.2); ABSOLUTE EOSINOPHILS 0.4 thou/uL (0.0-0.7); ABSOLUTE LYMPHOCYTES 2.2 thou/uL (0.8-5.3); ABSOLUTE MONOCYTES 0.7 thou/uL (0.0-1.2); ABSOLUTE NEUTROPHILS 5.8 thou/uL (1.6-8.1); BASOPHILS 0.7 %; EOSINOPHILS 3.9 %; HEMOGLOBIN 8.6 gm/dL (14.0-18.0); LYMPHOCYTES 24.2 %; MCHC 34.3 g/dL (28.0-37.0); MCV 93.5 fL (80.0-100.0); MONOCYTES 7.9 %; MPV 7.5 fl. (7.2-11.1); NUCLEATED RBCS 0 /100WBC; PLATELET COUNT* 283 thou/uL (150-400); POLYS 63.3 %; RBC 2.67 mil/uL (4.50-6.00); WBC 9.2 thou/uL (4.0-11.0)
[2019-10-20 10:05] LABS: ALBUMIN 2.6 g/dL (3.4-5.0); CALCIUM 8.5 mg/dL (8.5-10.1); CREATININE 5.4 mg/dL (0.6-1.3); PHOSPHORUS* 5.6 mg/dL (2.5-4.9); POTASSIUM 3.6 mmol/L (3.5-5.1)
[2019-10-20 10:10] LABS: CALCIUM 8.5 mg/dL (8.5-10.1); CREATININE 5.4 mg/dL (0.6-1.3); PHOSPHORUS* 5.6 mg/dL (2.5-4.9)
--- NOTE | 2019-10-20 10:32 | NUR ---
ARRIVED AMBULATORY. MADE SELF COMFORTABLE IN RECLINER. INJECTION COMPLETED AND TOLERATED WELL. PT STATED HE SHOULD HAVE AN EXTRA LAB ORDER THAT WAS SENT OVER. CALL PLACED TO LAB AND NEW ORDER RECIEVED. LABS DRAWN AND RESUTLS FAXED TO ORDERING DOCTOR. KENYA QUESTIONS OR NEEDS AT DISCHARGE.
== END ==
LOC: M.INFUS 08:41
PROVIDERS: Internal Medicine Nephrology
DX: N18.4 Chronic kidney disease, stage 4 (severe) (principal); E55.9 Vitamin D deficiency, unspecified

== ENCOUNTER → 2019-11-03 | Outpatient (CLI) | payer OTHER ==
[2019-11-03 13:45] VITALS: BP 117/65
== END ==
LOC: M.INFUS 04:05
DX: N18.4 Chronic kidney disease, stage 4 (severe) (principal); D63.1 Anemia in chronic kidney disease